=== PATIENT | female | born 1975 | race African-American/Black ===

== ENCOUNTER → 2018-11-16 | Day surgery (SDC) | payer BC ==
[2018-11-10 14:48] LABS: BASOPHILS % 0.2 % (0.0-1.0); EOSINOPHILS # (AUTO) 0.1 (0.0-0.4); EOSINOPHILS % 0.9 % (0.0-6.0); HEMATOCRIT 37.7 % (34.2-44.1); HEMOGLOBIN 12.2 g/dL (12.0-16.0); LYMPHOCYTES # (AUTO) 2.7 (1.0-3.2); LYMPHOCYTES % 18.3 % (18.0-39.1); MEAN CORPUSCULAR HEMOGLOBIN 28.3 pg (28-32); MEAN CORPUSCULAR HGB CONC 32.4 g/dL (31-35); MEAN CORPUSCULAR VOLUME 87.5 fL (81-99); MONOCYTES # (AUTO) 1.1 (0.2-0.8); MONOCYTES % 7.5 % (4.4-11.3); NEUTROPHILS # (AUTO) 10.7 (2.1-6.9); NEUTROPHILS % 72.8 % (38.7-80.0); PLATELET COUNT 257 x10e3/uL (140-360); RED BLOOD COUNT 4.31 x10e6/uL (3.6-5.1); RED CELL DISTRIBUTION WIDTH 14.2 % (11.7-14.4)
[~2018-11-16] MED LIST: DEXILANT30 MG PO; LABETALOL HCL100 MG PO; LIDOCAINE HCL 2% LOCAL INJ 5 ML SDV VIAL INJ ONE; MIDAZOLAM HCL 2 MG/2 ML VIAL ONE; PROPOFOL IV EMULSION 10 MG/ML 20 ML VIAL ONE
[2018-11-16 12:46] VITALS: BP 158/85
--- OUTSIDE RECORDS SUMMARY | 2018-11-22 09:19 | XMS REPORT ---
Author Author [facility] Address Unknown Phone Unavailable Care Team Providers Care Procurement Representative Name Role Phone Unavailable Unavailable Problems This patient has no known problems. Allergies, Adverse Reactions, Alerts This patient has no known allergies or adverse reactions. Medications This patient has no known medications. Results Test Description Test Time Test Comments Text Results Atomic Results Result Comments SCR MAMM BILATERAL CEDRIC CAD DIGITAL 2018-06-06 14:44:19 - SCR MAMM BILATERAL CEDRIC CAD DIGITALBILATERAL FIRST EVER DIGITAL SCREENING MAMMOGRAM 3D/2D WITH CAD: 06/04/2018CLINICAL: Asymptomatic. Digital breast tomosynthesis was performed in addition to routine CC and MLO views. Current mammographic images were evaluated by either a [employer] M-Vu or a [employer] ImageChecker CAD (computer aided detection system). No prior exams were available for comparison. There are scattered fibroglandular tissues in both breasts. No suspicious mass, architectural distortion, malignant type calcification, or lymph node abnormality detected. IMPRESSION: NEGATIVEThere is no mammographic evidence of malignancy. Resume annual screening mammography in one year. Zohaib Godoy M.D. ss/penrad:06/06/2018 14:44:19 Educational Assistant Teacher: Jasmyn BA, [facility]-FWletter sent: BIRADS 1-2 Normal Mammogram BI-RADS: 1 Negative
== END | disposition home or self-care (01) ==
LOC: OR 12:00
PROVIDERS: ATTEND Internal Medicine Gastroenterology
DX: K21.0 Gastro-esophageal reflux disease with esophagitis (principal); K29.50 Unspecified chronic gastritis without bleeding; R10.13 Epigastric pain; R07.89 Other chest pain; R13.19 Other dysphagia; K80.20 Calculus of gallbladder without cholecystitis without obstruction; K59.00 Constipation, unspecified; E66.01 Morbid (severe) obesity due to excess calories; Z68.42 Body mass index [BMI] 45.0-49.9, adult; Z71.3 Dietary counseling and surveillance; F17.200 Nicotine dependence, unspecified, uncomplicated; I25.10 Atherosclerotic heart disease of native coronary artery without angina pectoris; I10 Essential (primary) hypertension
CPT/HCPCS: 36415; 43239; 81025; 85025; 93005; J2001; J2250; J2704

== ENCOUNTER 2020-01-25 11:56 | Inpatient (IN) | payer BC, OTHER ==
[~2020-01-25] VITALS: Ht 177.8 cm; Wt 140.6 kg
[~2020-01-25 11:56] MED LIST changes: -LIDOCAINE HCL 2% LOCAL INJ 5 ML SDV VIAL INJ ONE; -MIDAZOLAM HCL 2 MG/2 ML VIAL ONE; -PROPOFOL IV EMULSION 10 MG/ML 20 ML VIAL ONE
[2020-01-25] MEDS ORDERED: AZITHROMYCIN 500MG/NS 250 ML 250 ML IV STA (12:27)
[2020-01-25] MEDS ORDERED: CEFTRIAXONE SOD 1 GM/NS 50 ML 50 ML IV ONE (12:30)
--- NOTE | 2020-01-25 12:54 | Diagnostic Imaging Report ---
EXAMINATION: CHEST SINGLE (PORTABLE) INDICATION: Chest pain, shortness breath COMPARISON: None FINDINGS: LINES/TUBES:None LUNGS:The lungs are well-inflated. Mild left basilar patchy opacities. PLEURA:No pleural effusion or pneumothorax. MEDIASTINUM:The cardiomediastinal silhouette appears normal in size and shape. BONES/SOFT TISSUES:No acute osseous injury. ABDOMEN:No free air under the diaphragm. IMPRESSION: Mild patchy left basilar opacities may represent subsegmental atelectasis however superimposed aspiration or pneumonia could have a similar appearance. Signed by: Ana Castle MD on 01/25/2020 12:50 PM
[2020-01-25 13:22] LABS: BASOPHILS # (AUTO) 0.1 (0.0-0.1); BASOPHILS % 0.3 % (0.0-1.0); EOSINOPHILS # (AUTO) 0.1 (0.0-0.4); EOSINOPHILS % 0.3 % (0.0-6.0); HEMATOCRIT 39.3 % (34.2-44.1); HEMOGLOBIN 12.4 g/dL (12.0-16.0); LYMPHOCYTES # (AUTO) 1.9 (1.0-3.2); LYMPHOCYTES % 10.2 % (18.0-39.1); MEAN CORPUSCULAR HEMOGLOBIN 27.3 pg (28-32); MEAN CORPUSCULAR HGB CONC 31.6 g/dL (31-35); MEAN CORPUSCULAR VOLUME 86.4 fL (81-99); MONOCYTES # (AUTO) 0.9 (0.2-0.8); MONOCYTES % 5.1 % (4.4-11.3); NEUTROPHILS # (AUTO) 15.4 (2.1-6.9); NEUTROPHILS % 83.7 % (38.7-80.0); PLATELET COUNT 313 x10e3/uL (140-360); RED BLOOD COUNT 4.55 x10e6/uL (3.6-5.1); RED CELL DISTRIBUTION WIDTH 14.1 % (11.7-14.4)
[2020-01-25 13:46] LABS: ALANINE AMINOTRANSFERASE 21 IU/L (0-55); ALBUMIN 3.9 g/dL (3.5-5.0); ALKALINE PHOSPHATASE 83 IU/L (40-150); ANION GAP 12.9 mmol/L (8-16); BLOOD UREA NITROGEN 8 mg/dL (7-26); BUN/CREATININE RATIO 9 (6-25); CALCIUM 9.5 mg/dL (8.4-10.2); CARBON DIOXIDE 27 mmol/L (22-29); CHLORIDE 103 mmol/L (98-107); CREATINE KINASE 224 IU/L (29-168); CREATININE, SERUM 0.85 mg/dL (0.57-1.11); EST GLOMERULAR FILTRATION RATE > 60 ML/MIN (60-); GLUCOSE 86 mg/dL (74-118); POTASSIUM 3.9 mmol/L (3.5-5.1); SODIUM 139 mmol/L (136-145)
--- NOTE | 2020-01-25 15:52 | Emergency Department Note ---
History of Present Illnes History of Present Illness Chief Complaint: COVID PUI History of Present Illness This is a 44 year old female I've the ED with complaints of cough and shortness of breath, patient only speaking in short sentences during triage, states she feels terrible-symptoms have been present since WEDNESDAY worsening. Chief Complaint Comment PATIENT IN FROM HOME WITH COMPLAINTS OF COUGH, CONGESTION, FEVER, AND CHILLS X 2 WEEKS; STATES WAS TESTED FOR COVID EARLIER IN THE WEEK BUT DOES NOT HAVE THE RESULTS. PATIENT TACHYPNEIC, FEBRILE, WITH HOARSE VOICE, AND ANXIOUS IN TRIAGE. O2 SATS 98% ON ROOM AIR. Historian: Patient Arrival Mode: Car Silo Operator Required: No Onset (how long ago): day(s) Severity: mild Duration (how long): day(s) Timing of current episode: constant Progression: worsening Relieving factors: none Associated symptoms: Reports cough, Reports diaphoresis, Reports fever/chills, Reports shortness of breath, Reports weakness Past Medical/Family History Physician Review I have reviewed the patient's past medical and family history. Any updates have been documented here. Past Medical History Recent Fever: Yes Clinical Suspicion of Infectio: Yes New/Unexplained Change in Ment: No Past Medical History: Hypertension Past Surgical History: Back Surgery, Bariatric Surgery Social History Smoking Cessation: Never Smoker Alcohol Use: None Any Illegal Drug Use: No TB Exposure/Symptoms: No Physically hurt or threatened: No Family History Family history of heart diseas: No Other Last Tetanus: UNKNOWN Any Pre-Existing Lines (PICC,: No Is patient up to date on immun: Yes Last Flu: UNKNOWN Last Pneumovax: UNKNOWN Review of Systems Review of Systems Constitutional: Reports no symptoms EENTM: Reports no symptoms Cardiovascular: Reports no symptoms Respiratory: Reports as per HPI, Reports dyspnea Gastrointestinal: Reports no symptoms Genitourinary: Reports no symptoms Musculoskeletal: Reports no symptoms Integumentary: Reports no symptoms Neurological: Reports no symptoms Psychological: Reports no symptoms Endocrine: Reports no symptoms Hematological/Lymphatic: Reports no symptoms Physical Exam Related Data Allergies: Coded Allergies: No Known Allergies (Unverified , 11/10/18) Triage Vital Signs Vital Signs Date Time Temp Pulse Resp B/P (MAP) Pulse Ox O2 Delivery O2 Flow Rate FiO2 01/25/20 12:17 100.1 95 28 231/145 98 Vital signs reviewed: Yes Physical Exam CONSTITUTIONAL Constitutional: Present well-developed, Present well-nourished HENT HENT: Present normocephalic, Present atraumatic, Present oropharynx clear/moist, Present nose normal HENT L/R: Present left ext ear normal, Present right ext ear normal EYES Eyes: Reports PERRL, Reports conjunctivae normal NECK Neck: Present ROM normal PULMONARY Pulmonary: Present effort normal, Present respiratory distress (marked tachypnea ) CARDIOVASCULAR Cardiovascular: Present regular rhythm, Present heart sounds normal, Present capillary refill normal, Present normal rate GASTROINTESTINAL Abdominal: Present soft, Present nontender, Present bowel sounds normal GENITOURINARY Genitourinary: Present exam deferred SKIN Skin: Present warm, Present dry MUSCULOSKELETAL Musculoskeletal: Present ROM normal NEUROLOGICAL Neurological: Present alert, Present oriented x 3, Present no gross motor or sensory deficits PSYCHOLOGICAL Psychological: Present mood/affect normal, Present judgement normal Results Laboratory Result Diagram: 01/25/20 1257 01/25/20 1257 Laboratory Laboratory Tests Test 01/25/20 12:57 01/25/20 12:52 01/25/20 12:50 White Blood Count 18.37 x10e3/uL (4.8-10.8) Red Blood Count 4.55 x10e6/uL (3.6-5.1) Hemoglobin 12.4 g/dL (12.0-16.0) Hematocrit 39.3 % (34.2-44.1) Mean Corpuscular Volume 86.4 fL (81-99) Mean Corpuscular Hemoglobin 27.3 pg (28-32) Mean Corpuscular Hemoglobin Concent 31.6 g/dL (31-35) Red Cell Distribution Width 14.1 % (11.7-14.4) Platelet Count 313 x10e3/uL (140-360) Neutrophils (%) (Auto) 83.7 % (38.7-80.0) Lymphocytes (%) (Auto) 10.2 % (18.0-39.1) Monocytes (%) (Auto) 5.1 % (4.4-11.3) Eosinophils (%) (Auto) 0.3 % (0.0-6.0) Basophils (%) (Auto) 0.3 % (0.0-1.0) Neutrophils # (Auto) 15.4 (2.1-6.9) Lymphocytes # (Auto) 1.9 (1.0-3.2) Monocytes # (Auto) 0.9 (0.2-0.8) Eosinophils # (Auto) 0.1 (0.0-0.4) Basophils # (Auto) 0.1 (0.0-0.1) Absolute Immature Granulocyte (auto 0.08 x10e3/uL (0-0.1) Sodium Level 139 mmol/L (136-145) Potassium Level 3.9 mmol/L (3.5-5.1) Chloride Level 103 mmol/L (98-107) Carbon Dioxide Level 27 mmol/L (22-29) Anion Gap 12.9 mmol/L (8-16) Blood Urea Nitrogen 8 mg/dL (7-26) Creatinine 0.85 mg/dL (0.57-1.11) Estimat Glomerular Filtration Rate > 60 ML/MIN (60-) BUN/Creatinine Ratio 9 (6-25) Glucose Level 86 mg/dL (74-118) Calcium Level 9.5 mg/dL (8.4-10.2) Total Bilirubin 0.7 mg/dL (0.2-1.2) Aspartate Amino Transf (AST/SGOT) 20 IU/L (5-34) Alanine Aminotransferase (ALT/SGPT) 21 IU/L (0-55) Alkaline Phosphatase 83 IU/L (40-150) Creatine Kinase 224 IU/L (29-168) Creatine Kinase MB 6.50 ng/mL (0-4.3) Troponin I < 0.05 ng/mL (0.0-0.40) Total Protein 7.9 g/dL (6.5-8.1) Albumin 3.9 g/dL (3.5-5.0) Globulin 4.0 g/dL (2.3-3.5) Albumin/Globulin Ratio 1.0 (0.8-2.0) Lactic Acid Level 1.5 mmol/L (0.5-2.0) Lab results reviewed: Yes Imaging Imaging results reviewed: Yes Impressions IMPRESSION: Mild patchy left basilar opacities may represent subsegmental atelectasis however superimposed aspiration or pneumonia could have a similar appearance. Signed by: Ana Castle MD on 01/25/2020 12:50 PM Assessment & Plan Medical Decision Making MDM 44-year-old female arrived to the ED with shortness of breath, cough and fever. Although patient did not show any evidence of hypoxia she was markedly to Barely able to speak a few words before getting significantly dyspneic. Patient markedly hypertensive on arrival, admitted for monitoring to the inpatient Covid unit. Assessment & Plan Final Impression: (1) Acute respiratory failure due to COVID-19 (2) Hypertensive emergency Depart Disposition: ADMITTED Last Vital Signs Date Time Temp Pulse Resp B/P (MAP) Pulse Ox O2 Delivery O2 Flow Rate FiO2 01/25/20 13:49 99.1 88 20 166/108 100 Home Meds Reported Medications Labetalol Hcl (LABETALOL HCL) 100 Mg Tablet, 100 MG PO PRN, #30 TAB 11/10/18 Dexlansoprazole (DEXILANT) 30 Mg Leighton., 30 MG PO DAILY THERAPEUTIC INTERCHANGED WITH PROTONIX PER [facility] 11/10/18 Medications in the ED Ceftriaxone Sodium 50 ml @ 100 mls/hr ONCE ONCE IV Last administered on 01/25/20at 13:00; Admin Dose 100 MLS/HR; Start 01/25/20 at 12:30; Stop 01/25/20 at 12:59; Status DC Azithromycin 250 ml @ 250 mls/hr NOW STAT IV Last administered on 01/25/20at 13:30; Admin Dose 250 MLS/HR; Start 01/25/20 at 12:27; Stop 01/25/20 at 13:26; Status DC KAMINI ASCENCIO, Jan 25, 2020 15:35
[2020-01-25] MEDS ORDERED: HYDRALAZINE HCL 20 MG/ML VIAL IV STA (16:10)
[2020-01-25] MEDS ORDERED: ONDANSETRON HCL INJ 2MG/ML 2ML 2 MG/ML VIAL IV PRN (17:45)
[2020-01-25] MEDS ORDERED: HYDRALAZINE HCL 20 MG/ML VIAL IV PRN (17:45)
[2020-01-25] MEDS ORDERED: ALBUTEROL SULFATE HFA 8GM INHALATION AEROSOL INH PRN (17:45)
[2020-01-25] MEDS ORDERED: ACETAMINOPHEN 325 MG TAB PO PRN (17:45)
[2020-01-25] MEDS ORDERED: ZOLPIDEM TARTRATE 5 MG TAB PO PRN ×2 (17:45→21:00)
[2020-01-25] MEDS ORDERED: DEXAMETHASONE SOD PHOS 10 MG/1 ML VIAL IV ONE (18:00)
[2020-01-25] MEDS ORDERED: SODIUM CHLORIDE 0.9% 1000ML 1,000 ML IV STA ×2 (18:00)
--- NOTE | 2020-01-25 18:40 | Consultation ---
DATE OF CONSULTATION: Pulmonary Critical Care Consultation CHIEF COMPLAINT: Cough, dyspnea, and fever. HISTORY OF PRESENT ILLNESS: The patient is a 44-year-old woman. She has a history of bariatric surgery. She reports malaise and fatigue for about 2 weeks. She recently went to an emergency department of [facility] with difficulty breathing and cough. She was diagnosed with pneumonia. Her COVID was pending at the time she left. She was treated with antibiotics, but has not improved. She now complains of fever and worsening dyspnea. PAST SURGICAL HISTORY: Status post bariatric surgery. PAST MEDICAL HISTORY: 1. No prior history of asthma. 2. No prior cardiac disease. 3. Hypertension. 4. Gastroesophageal reflux. ALLERGIES: THERE ARE NO KNOWN DRUG ALLERGIES. SOCIAL HISTORY: The patient is not a smoker or drinker. FAMILY HISTORY: Family history is noncontributory. REVIEW OF SYSTEMS: The patient did have some fevers. She has no headache. She has no neck pain. She notes some cough and difficulty breathing. She also complains of some tightness in her chest. She has occasional vomiting and mild nausea. She has no diarrhea. She has no leg edema. PHYSICAL EXAMINATION: VITAL SIGNS: The patient is afebrile. The blood pressure is 152/95 and the saturation is 100%. Her respiratory rate is 20 and the pulse is 88. HEENT: Shows no facial swelling or erythema. CARDIAC: Reveals regular rate and rhythm with normal S1 and S2. LUNGS: Auscultation of lungs reveals rhonchorous breath sounds bilaterally. There is no wheezing. ABDOMEN: Soft and nontender. There is no rebound or guarding. EXTREMITIES: Shows no leg edema or calf tenderness. There is no cyanosis or clubbing. SKIN: Shows no rashes. NEUROLOGICAL: Shows no focal abnormalities. LABORATORY DATA: BUN to creatinine ratio is 8 to 0.85. Other electrolytes within normal limits. White blood cell count is 18.3 and the hemoglobin is 12.4. The platelet count is 313. RADIOGRAPHIC DATA: Chest x-ray shows mild patchy left basilar opacities, suggesting aspiration or possible pneumonia. IMPRESSION: 1. Viral pneumonia and possible COVID-19 infection. 2. Hypertension. 3. Prior bariatric surgery. PLAN: 1. Begin Rocephin and Zithromax. 2. Antihypertensive regimen. 3. Oxygen. 4. Bronchodilators. 5. Dexamethasone. MD HELADIO Dumont/ABELARDO /[id number]
--- NOTE | 2020-01-25 20:00 | NUR ---
PATIENT RECEIVED FROM ER. PATIENT IS AAOX3, RESP EVEN AND UNLABORED. NO ACUTE DISTRESS NOTED AT THIS TIME. TELE IN PLACE NOTED. ORIENTED TO ROOM. CALL LIGHT WITHIN REACH. INSTRUCT TO CALL FOR ASSISTANCE. BED LOW/LOCKED. CONTINUE TO MONITOR CLOSELY
[2020-01-25 20:12] VITALS: BP 158/99
[2020-01-25] MEDS: ENOXAPARIN SOD INJ 40 MG/0.4 ML SYR SC SCH (20:21)
[2020-01-25 21:39] VITALS: BP 158/99
[2020-01-25 21:40] VITALS: BP 158/99
[2020-01-25] MEDS ORDERED: HYDROCODONE/APAP 5MG-325MG TAB PO PRN (23:30)
[2020-01-25] MEDS ORDERED: BENZONATATE 100 MG CAP PO PRN (23:30)
[2020-01-25] MEDS ORDERED: LABETALOL HCL 100 MG TAB PO SCH (23:30)
[2020-01-25] MEDS: GUAIFENESIN/CODEINE 10 ML CUP PO PRN (23:58)
[2020-01-26] VITALS (8 sets, daily range): BP systolic 116–159; BP diastolic 74–92
--- NOTE | 2020-01-26 00:36 | History and Physical ---
CHIEF COMPLAINT: Cough, congestion and shortness of breath. HISTORY OF PRESENT ILLNESS: A 44-year-old female with past medical history of hypertension. She presented to the emergency room with complaints of cough, congestion, and subjective fever ongoing for the last 2-3 weeks. The patient reports she recently went to her primary care physician and was told that she had acute bronchitis and was treated accordingly with ProAir. Then she reported that she recently was on some antibiotics I believe from the same PCP in which she reports she did not get better. She does work, states that some of her coworkers were positive for coronavirus. 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 She denies any chest pain. Denies any diarrhea. No recent travel. The patient is seen and evaluated at bedside on the medical floor. She is currently doing well. She is stable. Her coronavirus was found to be negative. The patient is on 2 L nasal cannula during my evaluation. REVIEW OF SYSTEMS: Pertinent positive cough, congestion, and subjective fever. The rest of 14-point review of systems have been reviewed with the patient and are negative. ALLERGIES: NO KNOWN DRUG ALLERGIES. MEDICATIONS: Dexilant and labetalol. PAST MEDICAL HISTORY: Hypertension and acid reflux. PAST SURGICAL HISTORY: Reports none. FAMILY HISTORY: Hypertension and diabetes. SOCIAL HISTORY: No drugs, no alcohol, does not smoke. Good social support. PHYSICAL EXAMINATION: VITAL SIGNS: Temperature is 98.7, pulse 85, respiratory rate is 20, blood pressure 150/99, pulse ox 95% on 2 L nasal cannula. GENERAL: No acute distress, alert and oriented x3. Cooperative on examination. HEENT: Head normocephalic, atraumatic. Eyes; pupils are equal, round, and reactive to light bilaterally. Throat; no evidence of erythema or exudates in the posterior pharynx. Has poor dentition. NECK: Supple. Good range of motion. PULMONARY: Clear to auscultation bilaterally. No wheezing, rales, or rhonchi. No crackles appreciated. CARDIOVASCULAR: Positive S1, S2. No murmurs, rubs, or gallops. ABDOMEN: Soft, nondistended, nontender to palpation. Bowel sounds present. MUSCULOSKELETAL: Strength is 5/5 throughout. No evidence of any muscle deficits on examination. NEUROLOGIC: Cranial nerve II through XII grossly intact. No evidence of any neurological deficits on exam. SKIN: Intact. Warm to touch. Good cap refill. PSYCHIATRIC: Normal affect and mood. EXTREMITIES: No edema. Good range of motion throughout. LABORATORY FINDINGS: Show white count 18.3, hemoglobin 12, hematocrit 39, platelets of 313,000. Chemistry sodium 139, potassium 3.9, chloride 103, bicarbonate 27, anion gap of 12, BUN is 8, creatinine is 0.85, glucose 86, lactic acid 1.5, calcium 9.5, total bilirubin is 0.7, AST 20, ALT 21, troponins were found to be negative. Albumin 3.9. Coronavirus was found to be negative. Blood cultures, no growth today. IMAGING STUDIES: Chest x-ray shows mild patchy left bibasilar opacity may represent subsegmental atelectasis, however, superimposed aspiration pneumonia could have a similar appearance. IMPRESSION: 1. Acute bronchitis with also possible community-acquired pneumonia. 2. Hypertension. 3. Morbidly obese. PLAN: At this time she will continue with IV antibiotic therapy. Blood cultures are pending. We will have some DuoNeb treatments. She was started on IV dexamethasone as per Pulmonary. Pulmonary was consulted. COVID-19 was found to be negative. We will put on antitussive medication, pain control. Lovenox for DVT prophylaxis. Encourage ambulation. MD HUDSON Rosales/RAEGANL /[id number]
[2020-01-26 05:48] LABS: BASOPHILS % 0.2 % (0.0-1.0); HEMATOCRIT 37.2 % (34.2-44.1); HEMOGLOBIN 11.8 g/dL (12.0-16.0); LYMPHOCYTES # (AUTO) 1.2 (1.0-3.2); LYMPHOCYTES % 10.2 % (18.0-39.1); MEAN CORPUSCULAR HEMOGLOBIN 27.1 pg (28-32); MEAN CORPUSCULAR HGB CONC 31.7 g/dL (31-35); MEAN CORPUSCULAR VOLUME 85.3 fL (81-99); MONOCYTES # (AUTO) 0.2 (0.2-0.8); MONOCYTES % 1.7 % (4.4-11.3); NEUTROPHILS # (AUTO) 10.3 (2.1-6.9); NEUTROPHILS % 87.4 % (38.7-80.0); PLATELET COUNT 299 x10e3/uL (140-360); RED BLOOD COUNT 4.36 x10e6/uL (3.6-5.1)
[2020-01-26 06:07] LABS: ALANINE AMINOTRANSFERASE 19 IU/L (0-55); ALBUMIN 3.6 g/dL (3.5-5.0); ALKALINE PHOSPHATASE 70 IU/L (40-150); ANION GAP 10.6 mmol/L (8-16); BLOOD UREA NITROGEN 10 mg/dL (7-26); BUN/CREATININE RATIO 13 (6-25); CALCIUM 9.6 mg/dL (8.4-10.2); CARBON DIOXIDE 26 mmol/L (22-29); CHLORIDE 107 mmol/L (98-107); CREATININE, SERUM 0.77 mg/dL (0.57-1.11); EST GLOMERULAR FILTRATION RATE > 60 ML/MIN (60-); GLUCOSE 128 mg/dL (74-118); POTASSIUM 4.6 mmol/L (3.5-5.1); SODIUM 139 mmol/L (136-145)
[2020-01-26] MEDS: THIAMINE HCL 100 MG TAB PO SCH (09:00)
[2020-01-26] MEDS: ENOXAPARIN SOD INJ 40 MG/0.4 ML SYR SC SCH (09:00)
[2020-01-26] MEDS: LISINOPRIL 20 MG TAB PO SCH (09:00)
--- NOTE | 2020-01-26 09:10 | NUR ---
RCD PT AT BED PT IS ALERT AND ORIENTED PT RESTING ON BED NO SIGNS OF ANY DISTRESS NOTED IV PATENT BED LOW AND LOCKED CALL LIGHT IN REACH
[2020-01-26] MEDS: AZITHROMYCIN 500MG/NS 250 ML 250 ML IV SCH (10:00)
[2020-01-26] MEDS: CEFTRIAXONE SOD 1 GM/NS 50 ML 50 ML IV SCH (12:30)
--- NOTE | 2020-01-26 18:25 | NUR ---
PT C/O BREATHING DIFFICULTY AND PAIN ON CHEST PAGED AND NOTIFIED DR PALACIOS GOT NEW ORDERS
[2020-01-26] MEDS ORDERED: ALBUTEROL/IPRATROPIUM 3 ML NEB NEB PRN (18:30)
--- NOTE | 2020-01-26 18:46 | NUR ---
PT RESTING ON BED BED SIDE REPORT GIVEN TO ONCOMING NURSE
--- NOTE | 2020-01-26 19:05 | NUR ---
RECEIVED REPORT FROM PREVIOUS NURSE. CALL LIGHT WITHIN REACH. PATIENT IN BED.
--- NOTE | 2020-01-26 19:49 | NUR ---
PATIENT IS LEAVING FOR CT CHEST VIA WHEELCHAIR AND 2 L NC
--- NOTE | 2020-01-26 19:55 | NUR ---
PATIENT ARRIVED BACK FROM CT VIA STRETCHER. PATIENT IN NO PAIN OR DISTRESS
[2020-01-26] MEDS ORDERED: SODIUM CHLORIDE 0.9% 50ML 50 ML ONE (19:58)
[2020-01-26] MEDS ORDERED: IOPAMIDOL 370 MG/ML 200 ML INFUS..BTL INJ ONE (19:58)
--- NOTE | 2020-01-26 20:49 | Diagnostic Imaging Report ---
EXAM: CT Chest WITH contrast (PE Protocol) INDICATION: RULE OUT DVT COMPARISON: None TECHNIQUE: Chest was scanned utilizing a multidetector helical scanner from the lung apex through the level of the diaphragm after administration of IV contrast. Thin section reconstructions were obtained with special concentration on the pulmonary arteries. Coronal and sagittal reformations were obtained. Dose modulation, iterative reconstruction, and/or weight based adjustment of the mA/kV was utilized to reduce the radiation dose to as low as reasonably achievable. Pulmonary embolism protocol was performed. IV CONTRAST: 100 mL of Omnipaque 350 COMPLICATIONS: None RADIATION DOSE: Total DLP: 631.12 mGy*cm Estimated effective dose: (DLP x 0.014 x size factor) mSv CTDIvol has been reviewed. It is below the limits set by the Radiation Protocol Committee (RPC). FINDINGS: LINES/ TUBES: None. LUNGS AND AIRWAYS: No filling defect is identified within the pulmonary arteries to the interlobar level. The segmental and subsegmental pulmonary arteries are not adequately opacified and cannot be evaluated. Diffuse faint bilateral groundglass opacities are seen. There is subsegmental left basilar atelectasis. Airways are normal. PLEURA: The pleural spaces are clear. HEART AND MEDIASTINUM: The thyroid gland is normal. No mediastinal, hilar or axillary lymphadenopathy. The heart is normal in size.. There is no pericardial effusion. . Main pulmonary artery measures 3.2 cm in diameter and the ascending aorta measures 3.5 cm. UPPER ABDOMEN: Gastric ring is present. There is a small hiatal hernia with thickening of distal esophagus. Cholelithiasis. BONES: Unremarkable. SOFT TISSUES: Unremarkable. IMPRESSION: 1. No pulmonary emboli. 2. Diffuse bilateral lung patchy groundglass opacities are likely infectious in etiology. 3. Small hiatal hernia with thickening of distal esophagus. Recommend further evaluation with endoscopy. 4. Cholelithiasis Signed by: Zoltan Del Rosario MD on 01/26/2020 8:46 PM
[2020-01-26] MEDS ORDERED: DEXAMETHASONE PHOS 4MG/ML 5ML MULTIDOSE VIAL IV ONE (23:15)
[2020-01-27] VITALS (8 sets, daily range): BP systolic 120–164; BP diastolic 48–106
--- NOTE | 2020-01-27 01:53 | Progress Note ---
DATE: 01/26/2020 Medicine Progress Note SUBJECTIVE: The patient was doing well today with no complaints. Of note, she actually states she was breathing much better today. She is still on nasal cannula. PHYSICAL EXAMINATION: VITAL SIGNS: Temperature during my evaluation was 98, pulse 80, respiratory rate is 20, blood pressure 115/92, pulse ox 99% on room air. GENERAL: No acute distress. Alert and oriented x3. Cooperative on examination. HEENT: Head is normocephalic and atraumatic. Eyes; pupils are equal, round, and reactive to light bilaterally. PULMONARY: Clear to auscultation bilaterally. No wheezing, rales, or rhonchi. No crackles appreciated. CARDIOVASCULAR: Positive S1 and S2. No murmurs, rubs, or gallops appreciated. ABDOMEN: Soft, nondistended, nontender to palpation. Bowel sounds present. MUSCULOSKELETAL: Strength is 5/5 throughout. No evidence of any muscle deficits on examination. No weakness appreciated. NEUROLOGIC: Cranial nerve II through XII grossly intact. No evidence of any neurological deficits on exam. SKIN: Intact. Warm to touch. Good cap refill. PSYCHIATRIC: Normal affect and mood. EXTREMITIES: No edema. Good range of motion throughout. LABORATORY FINDINGS: Show white count 11.7, hemoglobin 9.8, hematocrit is 37, and platelets of 299. Chemistry; sodium was 139, potassium 4.6, chloride 107, bicarb 26, anion gap of 10, BUN is 10, creatinine is 0.77, glucose 128, calcium 9.6, total bilirubin is 0.4. LFTs within normal range. Troponins were all negative. Albumin was 3.6. SEROLOGY: Coronavirus was not detected. MICROBIOLOGY: Blood cultures no growth. IMAGING: CTA of the chest shows no pulmonary embolism. Diffuse bilateral lung patchy ground-glass opacities, likely infectious etiology. Small hiatal hernia with thickening of the distal esophagus. Cholelithiasis. IMPRESSION: 1. Acute bronchitis, concerns for underlying community-acquired pneumonia. 2. Possible underlying viral pneumonia. 3. Hypertension. 4. Morbidly obese. PLAN: At this time, the patient continues to complain of shortness of breath, in which a chest CTA was performed, which showed no evidence of any PE, but does show some ground-glass opacity concerning for underlying viral pneumonia. She is afebrile. Her white count improved. We will continue with neb treatments, IV antibiotic therapy. I will go ahead and give another dose of steroids. Once again her COVID19 was found to be negative. I will discuss this with Pulmonary and ID to see if they need another COVID19 test. Continue with antitussives. Pain control. Lovenox for DVT prophylaxis. We will get morning labs. MD HUDSON Rosales/ABELARDO /[id number]
[2020-01-27 06:47] LABS: BASOPHILS % 0.3 % (0.0-1.0); EOSINOPHILS # (AUTO) 0.1 (0.0-0.4); EOSINOPHILS % 1.1 % (0.0-6.0); HEMATOCRIT 34.1 % (34.2-44.1); LYMPHOCYTES # (AUTO) 3.8 (1.0-3.2); LYMPHOCYTES % 32.8 % (18.0-39.1); MEAN CORPUSCULAR HEMOGLOBIN 28.6 pg (28-32); MEAN CORPUSCULAR HGB CONC 32.3 g/dL (31-35); MEAN CORPUSCULAR VOLUME 88.8 fL (81-99); MONOCYTES # (AUTO) 0.8 (0.2-0.8); MONOCYTES % 6.6 % (4.4-11.3); NEUTROPHILS # (AUTO) 6.6 (2.1-6.9); NEUTROPHILS % 57.9 % (38.7-80.0); PLATELET COUNT 255 x10e3/uL (140-360); RED BLOOD COUNT 3.84 x10e6/uL (3.6-5.1); RED CELL DISTRIBUTION WIDTH 14.5 % (11.7-14.4)
[2020-01-27 07:16] LABS: ANION GAP 9.9 mmol/L (8-16); BLOOD UREA NITROGEN 14 mg/dL (7-26); BUN/CREATININE RATIO 17 (6-25); CALCIUM 8.7 mg/dL (8.4-10.2); CARBON DIOXIDE 25 mmol/L (22-29); CHLORIDE 108 mmol/L (98-107); CREATININE, SERUM 0.81 mg/dL (0.57-1.11); EST GLOMERULAR FILTRATION RATE > 60 ML/MIN (60-); GLUCOSE 95 mg/dL (74-118); POTASSIUM 3.9 mmol/L (3.5-5.1); SODIUM 139 mmol/L (136-145)
--- NOTE | 2020-01-27 07:24 | NUR ---
GAVE BEDSIDE SHIFT REPORT TO ONCOMING NURSE. CALL LIGHT WITHIN REACH. PATIENT IN BED. HOURLY ROUNDING PERFORMED.
[2020-01-27] MEDS: GUAIFENESIN/CODEINE 10 ML CUP PO PRN (08:22)
[2020-01-27] MEDS: LISINOPRIL 20 MG TAB PO SCH (09:00)
[2020-01-27] MEDS: ENOXAPARIN SOD INJ 40 MG/0.4 ML SYR SC SCH (09:00)
[2020-01-27] MEDS: THIAMINE HCL 100 MG TAB PO SCH (09:00)
[2020-01-27] MEDS: AZITHROMYCIN 500MG/NS 250 ML 250 ML IV SCH (10:00)
--- NOTE | 2020-01-27 11:00 | Progress Note ---
DATE: SUBJECTIVE: The patient is seen and evaluated. Discussed with Dr. Otoole. Available labs and notes reviewed. Please refer to chart for more information. REVIEW OF SYSTEMS: The patient had emesis today what she ate this morning was brought back off. No body aches. Cough is better. Overall, she states that she think she is doing better, but remains weak. She is cold, but she is not shaky and she blames that the room is cold in general. PHYSICAL EXAMINATION: VITAL SIGNS: Temperature 98.1, pulse 68, respirations 20, and blood pressure 164/106. GENERAL: Alert and oriented, comfortable in bed, leaning on her left side. Responds appropriately, very pleasant. CV: S1 and S2. CHEST: Equal expansion. Decreased breath sounds. No acute distress. ABDOMEN: Soft, obese, and nontender. HEENT: Moist. No pallor. No JVD. EXTREMITIES: Moves all. No significant edema. MEDICATIONS: Medication list reviewed and from ID point of view, the patient is on Rocephin and Zithromax. LABORATORY STUDIES: White count of 11.48, hemoglobin 11, and platelet 255. Sodium 139, potassium 3.9, and creatinine 0.81. Serology; coronavirus PCR not detected, 01/25/2020. MICROBIOLOGY: Blood culture negative 24 [address] IMAGING: CT of the chest, no pulmonary emboli, however, showed diffuse bilateral long patchy ground-glass opacities, likely infectious in etiology. ASSESSMENT AND PLAN: Ground-glass opacities on CT of the chest, concerned for infection. The patient is on Rocephin and Zithromax. COVID-19 came back negative as mentioned above. Blood cultures negative. Cough improved. Had emesis, concern aspiration. Chest x-ray also showed patchy left basilar opacities. Fever resolved. Leukocytosis improved. Anemia per others. Lactic acid 1.5, within normal limits. AST, ALT, ALP within normal limit. Elevated CK-MB, however, troponin I is within normal limit. Attending notes reviewed. Continue to monitor the patient clinically and follow with the labs. The patient overall thinks she is improving. Dictated by Zoltan Chung PA-C (Al) Fernandez Otoole MD /MODL /[id number]
[2020-01-27] MEDS: CEFTRIAXONE SOD 1 GM/NS 50 ML 50 ML IV SCH (12:12)
--- NOTE | 2020-01-27 18:38 | NUR ---
PT RESTING ON BED BED SIDE REPORT GIVEN TO ONCOMING NURSE
--- NOTE | 2020-01-27 18:41 | Progress Note ---
DATE: 01/27/2020 Medicine Progress Note SUBJECTIVE: The patient reports feeling much better today with no complaints. Yesterday, she was still complaining of shortness of breath. I ordered a stat CT of the chest showed no evidence of any pulmonary embolism. She is otherwise, doing well now. She is on room air. She has no other complaints. She is not eating much, but she feels that she could possibly discharge tomorrow. PHYSICAL EXAMINATION: VITAL SIGNS: Temperature is 97.9, pulse 60, respiratory rate is 20, blood pressure 130/90, pulse ox 100% on room air. GENERAL: No acute distress. Alert and oriented x3. Cooperative on examination. HEENT: Normocephalic, atraumatic. Eyes; pupils are reactive to light bilaterally. Extraocular movements intact bilaterally. Throat; no evidence of erythema or exudates in the posterior pharynx. Has poor dentition. NECK: Supple. Good range of motion. PULMONARY: Clear to auscultation bilaterally. No wheezing, no rales, no rhonchi, no crackles appreciated. CARDIOVASCULAR: Positive S1 and S2. No murmurs, rubs, or gallops appreciated. ABDOMEN: Soft, nondistended, and nontender to palpation. Bowel sounds present. MUSCULOSKELETAL: Strength is 5/5 throughout. No evidence of any muscle deficits on examination. No weakness appreciated. NEUROLOGIC: Cranial nerve II through XII grossly intact. No evidence of any neurological deficits on exam. SKIN: Intact. Warm to touch. Good cap refill. PSYCHIATRIC: Normal affect and mood. EXTREMITIES: No edema. Good range of motion throughout. LABORATORY DATA: Labs show white count was 11.4, hemoglobin 11, hematocrit 34, and platelets of 255. Chemistry; sodium 139, potassium 3.9, chloride 108, bicarb 25, anion gap is 9.9, BUN is 14, creatinine 0.81, glucose is 95, calcium is 8.7. Troponins were negative. SEROLOGY: Coronavirus nondetected. MICROBIOLOGY: Blood cultures, no growth to date. IMAGING STUDIES: The CT of the chest showed diffuse bilateral lung patchy ground-glass opacities, likely infectious in etiology, but there was no evidence of any pulmonary embolism. IMPRESSION: 1. Acute bronchitis, concerns for community-acquired pneumonia. 2. Possible underlying viral pneumonia. 3. Hypertension. 4. Morbidly obese. PLAN: At this time, she is breathing well today with no complaints. Vital signs were stable. Chest CTA performed shows no evidence of PE, but did show evidence of an infectious process. She is on room air. She is doing well. Advance her diet accordingly. Continue with IV antibiotic therapy. COVID-19 was found to be negative. Lovenox for DVT prophylaxis. Get a.m. labs. If she does well, she can be discharged tomorrow. MD HUDSON Rosales/RAEGANL /[id number]
--- NOTE | 2020-01-27 19:05 | NUR ---
RECEIVED REPORT FROM PREVIOUS NURSE. CALL LIGHT WITHIN REACH. PATIENT IN BED. BEDSIDE REPORT PERFORMED
[2020-01-28] VITALS: BP 109/64
[2020-01-28 04:00] VITALS: BP 140/83
[2020-01-28 06:01] LABS: BASOPHILS # (AUTO) 0.1 (0.0-0.1); BASOPHILS % 0.6 % (0.0-1.0); EOSINOPHILS # (AUTO) 0.2 (0.0-0.4); EOSINOPHILS % 1.8 % (0.0-6.0); HEMOGLOBIN 10.9 g/dL (12.0-16.0); LYMPHOCYTES # (AUTO) 4.3 (1.0-3.2); LYMPHOCYTES % 43.3 % (18.0-39.1); MEAN CORPUSCULAR HEMOGLOBIN 27.3 pg (28-32); MEAN CORPUSCULAR HGB CONC 31.1 g/dL (31-35); MEAN CORPUSCULAR VOLUME 87.7 fL (81-99); MONOCYTES # (AUTO) 0.8 (0.2-0.8); NEUTROPHILS # (AUTO) 4.6 (2.1-6.9); PLATELET COUNT 287 x10e3/uL (140-360); RED BLOOD COUNT 3.99 x10e6/uL (3.6-5.1); RED CELL DISTRIBUTION WIDTH 14.6 % (11.7-14.4)
[2020-01-28 06:31] LABS: ANION GAP 12.6 mmol/L (8-16); BLOOD UREA NITROGEN 12 mg/dL (7-26); BUN/CREATININE RATIO 15 (6-25); CALCIUM 8.9 mg/dL (8.4-10.2); CARBON DIOXIDE 26 mmol/L (22-29); CHLORIDE 106 mmol/L (98-107); CREATININE, SERUM 0.79 mg/dL (0.57-1.11); EST GLOMERULAR FILTRATION RATE > 60 ML/MIN (60-); GLUCOSE 85 mg/dL (74-118); POTASSIUM 4.6 mmol/L (3.5-5.1); SODIUM 140 mmol/L (136-145)
--- NOTE | 2020-01-28 07:07 | NUR ---
GAVE BEDSIDE SHIFT REPORT TO ONCOMING NURSE. CALL LIGHT WITHIN REACH. PATIENT IN BED. HOURLY ROUNDING PERFORMED
[2020-01-28 07:49] VITALS: BP 139/95
[2020-01-28] MEDS: ENOXAPARIN SOD INJ 40 MG/0.4 ML SYR SC SCH ×2 (09:00→09:30)
[2020-01-28 09:25] VITALS: BP 139/95
[2020-01-28] MEDS: AZITHROMYCIN 500MG/NS 250 ML 250 ML IV SCH (09:30)
[2020-01-28] MEDS: LISINOPRIL 20 MG TAB PO SCH (09:30)
[2020-01-28] MEDS: THIAMINE HCL 100 MG TAB PO SCH (09:30)
[2020-01-28 11:53] VITALS: BP 139/87
[2020-01-28] MEDS: CEFTRIAXONE SOD 1 GM/NS 50 ML 50 ML IV SCH (12:39)
[2020-01-28] MEDS ORDERED: PREDNISONE20 MG PO (13:23)
[2020-01-28] MEDS ORDERED: AZITHROMYCIN250 MG PO (13:28)
--- NOTE | 2020-01-28 13:50 | NUR ---
Discharge education given to the patient with discharge packet provided. PIV to left AC discontinued, catheter tip intact, no bleeding noted.
--- NOTE | 2020-01-28 13:57 | NUR ---
Transported patient via wheelchair to private vehicle. All personal belongings taken.
--- NOTE | 2020-01-28 14:34 | Discharge Summary ---
FINAL DISCHARGE DIAGNOSES: 1. Acute bronchitis, likely community-acquired pneumonia. 2. Community-acquired pneumonia, possibly viral pneumonia, COVID-19 negative. 3. Hypertension. 4. Morbidly obese. 5. Coronavirus negative. CONSULTANTS: ID and Pulmonary. PHYSICAL EXAMINATION: VITAL SIGNS: Temperature is 98, pulse 57, respiratory rate is 18, blood pressure 139/87, and pulse ox 100% on room air. LABORATORY DATA: Show white count 9.9, hemoglobin 10.8, hematocrit is 35, and platelets of 287. Chemistry; sodium 140, potassium 4.6, chloride 106, bicarb 26, anion gap of 12, BUN is 12, creatinine 0.79, glucose is 85, and calcium is 8.9. Troponins were all negative. Albumin is 3.6. LFTs within normal range. Serology; coronavirus was not detected. MICROBIOLOGY: Blood cultures were negative. IMAGING STUDIES: Chest x-ray shows mild patchy left basilar opacities, may represent subsegmental atelectasis. However, superimposed aspiration pneumonia could have a similar appearance. CT of the chest shows no pulmonary emboli. Diffuse bilateral lung patchy ground-glass opacity, likely infectious in etiology. Small hiatal hernia with thickening of the distal esophagus. Cholelithiasis. HOSPITAL COURSE: This is a 44-year-old female, came into the emergency room with complaints of cough, congestion, and fever ongoing for the last several days prior to arrival to the hospital. The patient came in. She was on IV antibiotics. Blood cultures were negative. Pulmonary and ID were consulted. COVID-19 was found to be negative. Chest CTA showed no evidence of PE, concerning for underlying infectious process. The patient improved throughout the hospital course. She was on room air prior to being discharged. She was discharged with a Z-[place] and some oral steroids. The patient was stable prior to being discharged to home. She was actually cleared for discharge by all consultants, Pulmonary and ID. The patient was back to normal baseline. She was awake, alert, and oriented, eating her diet with no issues. On the day of discharge, vital signs were stable, labs reviewed and stable. The patient is seen and evaluated, examined thoroughly on the day of discharge. No other complaints. The patient verbalized understanding and agrees to plan of care to follow up accordingly as an outpatient with primary care physician in one week and Pulmonary and ID in 2 weeks' time. MEDICATIONS: See medication reconciliation form. DISPOSITION: Home. CONDITION: Stable. DIET: Heart healthy. In the event of worsening symptoms, the patient was advised to come back to the ED for further evaluation. Discharge summary took greater than 35 minutes. MD HUDSON Rosales/ABELARDO /[id number]
--- NOTE | 2020-01-29 09:46 | Consultation ---
DATE OF CONSULTATION: 01/26/2020 REASON FOR CONSULTATION: Pneumonia. HISTORY OF PRESENT ILLNESS: This is a 44-year-old female, who had history of obesity, history of bariatric surgery, comes in with fever and chills. She has been sick for a couple weeks with malaise, but she had fever and chills. The patient was checked for COVID, was negative. She was given oral antibiotics when she came here without improvement. She is being admitted. She is getting worse. The patient is currently lying in bed comfortably. PAST MEDICAL HISTORY: Obesity, hypertension, and GERD. PAST SURGICAL HISTORY: Bariatric surgery. ALLERGIES: NKA. SOCIAL HISTORY: There is no smoking, drug abuse, or alcohol abuse. FAMILY HISTORY: Unremarkable. LABORATORY DATA: When she first came, her white count was 18.37, hemoglobin 12.4. Her COVID-19 was negative. Her sodium 139, potassium 3.9 with creatinine 0.85. Her blood cultures are negative. PHYSICAL EXAMINATION: GENERAL: She is currently alert, oriented, does not seem to be in acute distress. VITAL SIGNS: Currently afebrile. HEENT: She is not icteric. NECK: Supple. CHEST: Clear. HEART: S1, S2. ABDOMEN: Soft. MEDICATION LIST: She is on Rocephin and azithromycin. She is currently on: 1. Lovenox. 2. Thiamine. 3. Codeine. 4. Tylenol. 5. Labetalol. IMPRESSION: 1. Pneumonia, community-acquired, on Rocephin and azithromycin. 2. Obesity. 3. Failed oral antibiotic. 4. History of bariatric surgery. I agree with antibiotic. We will recommend to change the Lovenox to 40 subcu q.24 hours. PLAN: She is on 5 days of antibiotic, recheck in the morning. Discussed with the patient. MD MECHE Christiansen/ABELARDO /[id number]
== END 2020-01-28 13:57 | disposition home or self-care (01) | DRG 193 ==
LOC: ER 11:56 → ERHOLD 13:47 → MED/SURG2 20:02
PROVIDERS: ADMIT Internal Medicine; ATTEND Internal Medicine
DX: J12.9 Viral pneumonia, unspecified (principal); J96.00 Acute respiratory failure, unspecified whether with hypoxia or hypercapnia; I16.1 Hypertensive emergency; Z68.41 Body mass index [BMI] 40.0-44.9, adult; J20.9 Acute bronchitis, unspecified; Z11.59 Encounter for screening for other viral diseases; I10 Essential (primary) hypertension; K21.9 Gastro-esophageal reflux disease without esophagitis; E66.01 Morbid (severe) obesity due to excess calories; Z98.84 Bariatric surgery status; R11.10 Vomiting, unspecified
CPT/HCPCS: 36415; 71045; 71260; 80048; 80053; 82550; 82553; 83605; 84484; 85025; 87040; 87635; 99285; J0360; J0456; J0696; J1100; J1650; J2405; J3411; J7030; Q9967

== ENCOUNTER → 2020-12-17 | Day surgery (SDC) | payer BC ==
[2020-12-12 15:09] LABS: BASOPHILS % 0.3 % (0.0-1.0); EOSINOPHILS # (AUTO) 0.2 (0.0-0.4); EOSINOPHILS % 1.9 % (0.0-6.0); HEMATOCRIT 42.3 % (34.2-44.1); HEMOGLOBIN 13.6 g/dL (12.0-16.0); LYMPHOCYTES # (AUTO) 3.1 (1.0-3.2); LYMPHOCYTES % 27.4 % (18.0-39.1); MEAN CORPUSCULAR HEMOGLOBIN 28.3 pg (28-32); MEAN CORPUSCULAR HGB CONC 32.2 g/dL (31-35); MEAN CORPUSCULAR VOLUME 88.1 fL (81-99); MONOCYTES # (AUTO) 1.2 (0.2-0.8); MONOCYTES % 10.5 % (4.4-11.3); NEUTROPHILS # (AUTO) 6.7 (2.1-6.9); NEUTROPHILS % 59.4 % (38.7-80.0); PLATELET COUNT 315 x10e3/uL (140-360); RED CELL DISTRIBUTION WIDTH 14.4 % (11.7-14.4)
[2020-12-12 15:27] LABS: ANION GAP 14.3 mmol/L (8-16); CALCIUM 10.1 mg/dL (8.4-10.2); CREATININE, SERUM 1.23 mg/dL (0.57-1.11); POTASSIUM 4.3 mmol/L (3.5-5.1)
[~2020-12-17] MED LIST changes: +ASPIRIN81 MG PO; +AZITHROMYCIN250 MG PO; +BUPIVACAINE 0.5%/EPI 30 ML SDV INJ ONE; +BYSTOLIC10 MG PO; +DESFLURANE 240 ML BTL INH ONE; +ESTROGENS CONJUGATED VAGINAL CR 45 GM TUBE PV ONE; +FENTANYL CITRATE/PF 100MCG/2 ML INJ ONE; +GLYCOPYRROLATE INJ 0.2 MG/ML VIAL ONE; +KETOROLAC TROMETHAMINE 30 MG/ML VIAL ONE; +LIDOCAINE HCL 2% LOCAL INJ 5 ML SDV VIAL INJ ONE; +LOSARTAN-HCTZ1 EAC1 PO; +METOCLOPRAMIDE HCL 10 MG/2ML VIAL ONE; +MIDAZOLAM HCL 2 MG/2 ML VIAL ONE; +NEOSTIGMINE 1 MG/ML 10ML VIAL ONE; +ONDANSETRON HCL INJ 2MG/ML 2ML 2 MG/ML VIAL ONE; +POVIDONE IODINE 0.05% 0.05 % ML PO ONE; +PREDNISONE20 MG PO; +PROPOFOL IV EMULSION 10 MG/ML 20 ML VIAL ONE; +ROCURONIUM BROMIDE 10 MG/ML 5ML VIAL IV ONE; +SUCCINYLCHOLINE CHLORIDE 20 MG/ML 10ML VIAL ONE; +SYNJARDY XR 251 EACH PO; +TRULICITY1.5 MG/0.5 SC
[2020-12-17 09:45] VITALS: BP 126/82
== END | disposition home or self-care (01) ==
LOC: OR 05:35
PROVIDERS: ATTEND Obstetrics & Gynecology
DX: N84.0 Polyp of corpus uteri (principal); E66.01 Morbid (severe) obesity due to excess calories; I10 Essential (primary) hypertension; I25.2 Old myocardial infarction; Z01.810 Encounter for preprocedural cardiovascular examination; Z01.812 Encounter for preprocedural laboratory examination; Z20.822 Contact with and (suspected) exposure to COVID-19; Z79.84 Long term (current) use of oral hypoglycemic drugs; Z79.82 Long term (current) use of aspirin; Z68.43 Body mass index [BMI] 50.0-59.9, adult
CPT/HCPCS: 36415 ×2; 58558; 58560; 80048; 81025; 82948; 84702; 85025; 88305; 93005; J0330; J1885; J2001; J2250; J2405; J2704; J2710; J2765; J3010; U0002